=== PATIENT | female | born 2005 | race Caucasian/White ===

== ENCOUNTER 2024-09-06 11:14 | Emergency (ER) | payer MEDICAID ==
[~2024-09-06] VITALS: Ht 165.1 cm; Wt 57.3 kg
[2024-09-06 11:17] VITALS: TEMP 98.8
[2024-09-06 11:50] VITALS: BP 102/52; PULSE 76; RESP 15; O2SAT 100
[2024-09-06 12:19] LABS: MEAN PLATELET VOLUME 8.6 FL (7.4-10.4); RED CELL DISTRIBUTION WIDTH 12.4 % (11.5-14.5)
[2024-09-06 12:29] LABS: LEUKOCYTE ESTERASE ,URINE NEGATIVE (Neg); NITRITES, URINE NEGATIVE (Neg); OCCULT BLOOD,URINE LARGE (Neg)
[2024-09-06 12:30] LABS: URINE HCG NEGATIVE (NEG)
[2024-09-06 12:37] LABS: UA COLLECTION TYPE CLN CATCH MIDSTREAM
[2024-09-06 12:38] LABS: SQUAMOUS EPITHELIAL CELL,UR MANY /LPF (FEW)
[2024-09-06 12:52] LABS: CREATININE 0.74 MG/DL (0.40-0.90); TOTAL CARBON DIOXIDE 27.4 MMOL/L (24-32); eCRCL 108 ML/MIN; eGFR > 90 ML/MIN
--- NOTE | 2024-09-06 14:40 | Physician Documentation ---
History of Present Illness Chief Complaint: Abdominal Pain Stated Complaint: ABD PAIN Time Seen by MD: 12:31 OK to notify your PCP?: Yes Source: patient, RN/MD, RN notes reviewed Mode of Arrival: POV Exam Limitations: no limitations HPI 19 year old female presents to the emergency room, seen in bed 16 presents to the emergency department for complaints of abdominal pain that has been present for one month. She states that she had gotten back from [place] one month ago and has been having intermittent abdominal pain, diarrhea, and nausea. She describes her pain as a stabbing feeling that goes across her abdomen. She states that her pain is mild when eating bland foods but worsens when she eats anything normal. Patient denies any other associated symptoms at this time. Patient denies any other alleviating or exacerbating factors. Medication Reconciliation Allergies: Coded Allergies: Penicillins (Unverified Allergy, Unknown, 09/06/24) Scheduled Doxycycline Hyclate (Doxycycline Hyclate), 1 CAP PO Q12H Past Medical History Past Medical History: No Pertinent History Past Surgical History: no surgical history Smoking Status: Former smoker Alcohol Use: None Drug Use: none Review of Systems All Other Systems at this time: Reviewed and Negative ROS As stated above in the HPI, otherwise all systems are reviewed and negative. Physical Exam Vital Signs: RN Vital Signs have been reviewed: Yes, Temperature: 98.8, Source: Temporal, Heart Rate: 76, Respiratory Rate: 15, BP: 102/52, Pulse Oximetry: 100, Weight: 57.300 Pulse Oximetry Reflects: adequate oxygenation Physical Exam General: The patient is well developed, well nourished, nontoxic appearing and is in no acute distress. Skin: Mill[place], warm and dry with no rashes. HEENT: Head was normocephalic and atraumatic. Eyes - pupils equal, round, reactive to light and accommodation. Extraocular movements were intact. Conjunctivae were nonicteric. Ears - bilateral tympanic membranes were normal. The mouth and oropharynx were clear with moist mucous membranes. There were no pharyngeal exudates or erythema. Neck: Supple and nontender. There was no jugular venous distention, lymphadenopathy, thyromegaly or masses. Chest: Clear to auscultation bilaterally without wheezes, rales or rhonchi. No accessory muscle use. No dullness to percussion. Heart: Rate regular and rhythmic. S1, S2. No murmurs. Palpation of the chest wall was normal. No rubs or thrills. Abdomen: Increased bowel sounds. Soft, nontender and nondistended. No guarding or rebound. No hepatosplenomegaly or palpable masses. Extremities: No cyanosis, clubbing or edema. The patient moves all extremities. Pulses were equal and symmetric. Neurologic: Cranial nerves II-XII were intact. Sensation was intact to light touch throughout. Motor strength was 5/5 in all four extremities. Deep tendon reflexes were intact in both upper and lower extremities. Psychologic: The patient was oriented to person, place and time. The patient demonstrated appropriate judgement and insight. Progress Results/Orders Reviewed/noted all lab results: Yes Results/Orders Orders - HEATHER PADGETT MD H Pylori Ab (09/06/24 14:29) Completed Orders - HEATHER PADGETT MD Hcg, Ur Ql (09/06/24 11:24) Cbc/Diff (09/06/24 11:24) Lipase (09/06/24 11:24) CMP (09/06/24 11:24) Ua W/Microscopic, Cult If Ind (09/06/24 11:25) Vital Signs 09/06/24 09/06/24 11:17 11:50 Temp 98.8 Pulse 78 76 Resp 16 15 B/P (MAP) 113/71 102/52 (69) Pulse Ox 100 100 Laboratory Tests Test 09/06/24 11:25 09/06/24 11:44 Urine Specimen Description Cln catch midstream Urine Color Straw Urine Clarity Slightly cloudy Urine pH 6.5 Urine Specific [place] <=1.005 Urine Protein Negative Urine Glucose (UA) Negative Urine Ketones Negative Urine Occult Blood Large H Urine Nitrite Negative Urine Bilirubin Negative Urine Urobilinogen 0.2 Urine Leukocyte Esterase Negative Urine RBC 10-20 Urine WBC 0-4 Urine Squamous Epithelial Cells Many Urine Bacteria Few Urine Culture Indicated Not ind Volume Urine Centrifuged 10 ml Urine HCG, Qualitative Negative Urine Comment White Blood Count 5.6 Red Blood Count 4.38 Hemoglobin 13.7 Hematocrit 40.6 Mean Corpuscular Volume 92.6 Mean Corpuscular Hemoglobin 31.3 H Mean Corpuscular Hemoglobin Concent 33.8 Red Cell Distribution Width 12.4 Platelet Count 302 Mean Platelet Volume 8.6 Neutrophils (%) (Auto) 53.4 Lymphocytes (%) (Auto) 30.4 Monocytes (%) (Auto) 12.4 H Eosinophils (%) (Auto) 3.1 Basophils (%) (Auto) 0.7 Neutrophils # (Auto) 3.0 Lymphocytes # (Auto) 1.7 Monocytes # (Auto) 0.7 Eosinophils # (Auto) 0.2 Basophils # (Auto) 0.0 CBC Comment Sodium Level 141 Potassium Level 3.7 Chloride Level 103 Carbon Dioxide Level 27.4 Anion Gap 11 Blood Urea Nitrogen 10 Creatinine 0.74 Estimated GFR/1.73 m2 > 90 BUN/Creatinine Ratio 13.5 Glucose Level 93 Calcium Level 8.9 Total Bilirubin 0.4 Aspartate Amino Transf (AST/SGOT) 19 Alanine Aminotransferase (ALT/SGPT) 25 Alkaline Phosphatase 102 Total Protein 8.4 H Albumin 4.3 Globulin 4.1 Albumin/Globulin Ratio 1.0 L Lipase 33 Chemistry Comments Re-Evaluation Re-Evaluation : Re-Evaluation: Improved Progress Patient was seen and examined. Patient is given reassurance. Patient's H pylori was negative. She had multiple complaints since she traveled to [place] all GI related unfortunately she is unable to produce any stool for stool culture. She was given prophylactic dose of doxycycline. We discussed multiple etiologies but without a culture and her current workup is reassuring for possible infectious process patient was ultimately discharged home. Patient is CBC does not show any leukocytosis with a normal WBC of 5.6 hemoglobin 13 hematocrit 40 without any left shift. Chemistry shows no metabolic process normal anion gap with a normal chemistry normal LFTs. Lipase within normal limits urinalysis was also within normal limits except for some hematuria hCG is negative H pylori negative. Patient was then discharged home with doxycycline encouraged to follow up with her primary care physician for follow up and if continued diarrhea to return for parasite workup. Medical Decision Making Additional info obtained from: old records Differential Dx:Considerations: Include: Bowel obstruction, Cholangitis, Cholelithasis, Constipation, Esophagitis, Gastritis/PUD, Gastroenteritis, GI hemorrhage, Hernia, Hepatitis, Inflammatory BD, Ischemic bowel, Ovarian cyst/torsion, Pancreatitis, Urinary tract infection, Other Departure Time of Disposition: 14:43 Disposition: 01 HOME / SELF CARE / HOMELESS Impression: Primary Impression: Abdominal pain Qualified Codes: R10.30 - Lower abdominal pain, unspecified Additional Impression: Travelers' diarrhea Condition: Stable Discharge Instructions: Diarrhea, Adult, [id number] Referrals: NO PRIMARY CARE PROVIDER (PCP) Prescriptions Doxycycline Hyclate (Doxycycline Hyclate) 100 Mg Capsule 1 CAP PO Q12H for 10 Days, #20 CAP Prov: HEATHER PADGETT MD 09/06/24 Education Educated: Patient Educated regarding: diagnosis, treatment, prognosis Signature Scribe Signature: Scribed for Heather Padgett MD by Adriana Aldridge . 09/06/24 14:43 Attestation: The note accurately reflects work and decisions made by me.Heather Padgett MD 09/06/24 14:40 HEATHER PADGETT MD Sep 06, 2024 14:40 ADRIANA MEJIA Sep 06, 2024 14:43
[2024-09-06] MEDS ORDERED: DOXY-1 PO (14:41)
[2024-09-06] MEDS: DOXYCYCLINE 100MG CAPSULE PO STA (15:14)
[2024-09-06 15:18] LABS: H PYLORI ANTIBODY NEGATIVE (Neg)
== END 2024-09-06 15:16 | disposition home or self-care (01) ==
LOC: ER 11:15
DX: R10.9 Unspecified abdominal pain (principal); R19.7 Diarrhea, unspecified; Z88.0 Allergy status to penicillin; Z87.891 Personal history of nicotine dependence
CPT/HCPCS: 36415; 80053; 81001; 81025; 83690; 85025; 86677; 99283

== ENCOUNTER 2024-12-08 11:38 | Emergency (ER) | payer MEDICAID ==
[~2024-12-08] VITALS: Ht 165.1 cm; Wt 55.2 kg
[2024-12-08 11:46] VITALS: BP 114/69; PULSE 60; RESP 18; O2SAT 99
[2024-12-08] MEDS ORDERED: ERYT1OIN6 LEFTEYE (12:50)
--- NOTE | 2024-12-08 12:51 | Physician Documentation ---
History of Present Illness ~ Chief Complaint: Eye Pain Stated Complaint: EYE PAIN Time Seen by MD: 12:39 Primary Medical Doctor: none Source: patient Mode of Arrival: POV Exam Limitations: no limitations HPI 19 Year old female experiencing a internal upper eyelid stye to the left eye is requesting an antibiotic ointment she has been trying [id number] treatments as well as conservative measures including warm compress without much relief. Patient denies any visual changes Medication Reconciliation Allergies: Coded Allergies: Penicillins (Unverified Allergy, Unknown, 12/08/24) Past Medical History Past Medical History: No Pertinent History Past Surgical History: no surgical history Alcohol Use: None Drug Use: none Review of Systems All Other Systems at this time: Reviewed and Negative Eyes: Reports: see HPI Physical Exam Vital Signs: RN Vital Signs have been reviewed: Yes, Temperature: 97.9, Heart Rate: 60, Respiratory Rate: 18, BP: 114/69, Pulse Oximetry: 99, Weight: 55.200 Oxygen Flow Rate: 0 General Appearance: alert, WD/WN, no apparent distress General Appearance General: Alert, no apparent distress. HEENT: moist mucous membranes. Neck: Full range of motion. Respiratory: No respiratory distress speaking in full sentences Chest: No accessory muscle use. Cardiovascular: Appears well perfused Neurologic: Oriented x4. Psychiatric: Normal mood and affect. Skin: Normal color, warm and dry. No edema, no ecchymosis. Eye Lid: redness, swelling, tender Conjunctiva: normal inspection; No: discharge Cornea: normal inspection Pupils/EOM/Fundus: PERRLA, EOM intact Progress Results/Orders Results/Orders Vital Signs 12/08/24 11:46 Temp 97.9 Pulse 60 Resp 18 B/P (MAP) 114/69 Pulse Ox 99 O2 Flow Rate 0 Medical Decision Making Findings Left upper eyelid internal hordeolum antibiotic ointment for her eye has been prescribed no visual changes patient to follow up Departure Time of Disposition: 12:49 Disposition: 01 HOME / SELF CARE / HOMELESS Impression: Primary Impression: Hordeolum internum left upper eyelid Condition: Stable Discharge Instructions: Sty Additional Instructions: Ointment as prescribed follow up with primary care as needed Referrals: NO PRIMARY CARE PROVIDER (PCP) Prescriptions Erythromycin Base Opth. Ointment* (Erythromycin Opth. Ointment*) 1 Gm Tube 1 APPLIC LEFTEYE [id number], #1 EACH Prov: ADRY CARTER NP 12/08/24 Education Educated: Patient Educated regarding: diagnosis, treatment, need for follow up Signature Scribe Signature: No scribe Attestation: The note accurately reflects work and decisions made by me.Adry ROGERS 12/08/24 12:50 ADRY CARTER NP Dec 08, 2024 12:51
[2024-12-08 13:02] VITALS: TEMP 97.9
== END 2024-12-08 13:03 | disposition home or self-care (01) ==
LOC: ER 11:39
DX: H00.024 Hordeolum internum left upper eyelid (principal); Z88.0 Allergy status to penicillin
CPT/HCPCS: 99283